=== PATIENT | female | born 1980 | race African-American/Black ===

== ENCOUNTER 2025-11-02 11:40 | Emergency (ER) | payer MEDICARE, MEDICAID ==
[~2025-11-02] VITALS: Ht 162.6 cm; Wt 79.5 kg
[~2025-11-02 11:40] MED LIST: GABA-1181 PO; HYDR-4062 PO; PARO10TA89 PO
[2025-11-02 11:51] VITALS: BP 114/80; PULSE 107; RESP 18; TEMP 99.3; O2SAT 96
[2025-11-02] MEDS ORDERED: PREG75 PO (11:51)
[2025-11-02] MEDS ORDERED: PREG25 PO (11:51)
[2025-11-02] MEDS: LIDOCAINE 5% TRANSDERMAL PATCH TD ONE (13:06)
== END 2025-11-02 13:27 | disposition home or self-care (01) ==
LOC: EMS 11:40
DX: M25.562 Pain in left knee (principal); F12.90 Cannabis use, unspecified, uncomplicated; F11.90 Opioid use, unspecified, uncomplicated; F19.90 Other psychoactive substance use, unspecified, uncomplicated; F17.210 Nicotine dependence, cigarettes, uncomplicated; Z98.890 Other specified postprocedural states; Z79.899 Other long term (current) drug therapy
CPT/HCPCS: 99283